=== PATIENT | female | born 1940 | race Caucasian/White ===

== ENCOUNTER 2017-06-29 10:16 | Emergency (ER) | payer OTHER ==
[~2017-06-29] VITALS: Ht 154.9 cm; Wt 63.5 kg
[2017-06-29] MEDS ORDERED: FORTAMET500 MG PO (10:47)
[2017-06-29] MEDS ORDERED: NAPROXEN500 MG PO (13:15)
== END 2017-06-29 13:43 | disposition home or self-care (01) ==
LOC: ER 10:16 → EDBD 11:40 → ER 13:43
DX: S93.601A Unspecified sprain of right foot, initial encounter (principal); X50.0XXA Overexertion from strenuous movement or load, initial encounter; Y93.K1 Activity, walking an animal; Y92.018 Other place in single-family (private) house as the place of occurrence of the external cause; Y99.8 Other external cause status

== ENCOUNTER 2018-07-16 20:40 | Emergency (ER) | payer OTHER ==
[~2018-07-16] VITALS: Ht 154.9 cm; Wt 64.9 kg
[~2018-07-16 20:40] MED LIST: FORTAMET500 MG PO; NAPROXEN500 MG PO
== END 2018-07-16 23:14 | disposition home or self-care (01) ==
LOC: ER 20:40
DX: L03.011 Cellulitis of right finger (principal); L08.89 Other specified local infections of the skin and subcutaneous tissue; R60.0 Localized edema; S60.3 Other superficial injuries of thumb; X58.XXXS Exposure to other specified factors, sequela

== ENCOUNTER → 2018-07-18 | Emergency (ER) | payer OTHER ==
[~2018-07-18] VITALS: Ht 154.9 cm; Wt 64.9 kg
== END | disposition home or self-care (01) ==
LOC: ER 12:39 → EDBD 12:40 → ER 12:40
DX: L02.511 Cutaneous abscess of right hand (principal)

== ENCOUNTER 2020-05-01 08:20 | Emergency (ER) | payer OTHER ==
[~2020-05-01] VITALS: Ht 154.9 cm; Wt 62.6 kg
[2020-05-01] MEDS ORDERED: OMEPRAZOLE20 MG PO (09:00)
[2020-05-01] MEDS ORDERED: SERTRALINE HCL50 MG PO (09:00)
[2020-05-01] MEDS ORDERED: GABAPENTIN800 M1 PO (09:00)
[2020-05-01] MEDS ORDERED: LOSARTAN-HCTZ1 EAC1 PO (09:01)
[2020-05-01] MEDS ORDERED: PIROXICAM20 MG PO (09:01)
== END 2020-05-01 14:14 | disposition home or self-care (01) ==
LOC: ER 08:20
DX: M13.861 Other specified arthritis, right knee (principal); M54.5 Low back pain; M25.551 Pain in right hip; N39.0 Urinary tract infection, site not specified